=== PATIENT | female | born 1950 | race Caucasian/White ===

== ENCOUNTER 2018-03-06 13:37 | Outpatient (CLI) | payer MEDICARE, OTHER | END 2018-03-06 13:38 | disposition home or self-care (01) | LOC: BICMAMMO 13:37 | PROVIDERS: ATTEND Family Medicine | DX: Z12.31 Encounter for screening mammogram for malignant neoplasm of breast (principal); Z80.3 Family history of malignant neoplasm of breast | CPT/HCPCS: 77063; 77067 ==

== ENCOUNTER 2020-01-16 08:19 | Outpatient (CLI) | payer MEDICARE, OTHER ==
--- NOTE | 2020-01-16 14:04 | NM ---
NUCLEAR MEDICINE BRAIN IMAGING: HISTORY: Extrapyramidal and movement disorder, unspecified TECHNIQUE: A Carla scan with axial tomographic images of the brain was obtained 3 hours following the intravenous administration of 4.6mCi I-123 Ioflupane. The patient was pretreated with 130 mg of oral potassium iodide 1 hour prior to the injection. FINDINGS: There is loss of normal symmetric comma shaped shaped uptake in the striata bilaterally. IMPRESSION: Parkinsonian syndrome. (Parkinsonian syndromes include Parkinson's disease, multiple system atrophy, progressive supranuclea r palsy, dementia with Lewy bodies and cortical basal degeneration).
== END 2020-01-16 08:20 | disposition home or self-care (01) ==
LOC: NM 08:19
PROVIDERS: ATTEND Psychiatry & Neurology Neurology
DX: G25.9 Extrapyramidal and movement disorder, unspecified (principal); G31.83 Neurocognitive disorder with Lewy bodies; F02.80 Dementia in other diseases classified elsewhere, unspecified severity, without behavioral disturbance, psychotic disturbance, mood disturbance, and anxiety; G83.89 Other specified paralytic syndromes; G23.8 Other specified degenerative diseases of basal ganglia; G31.9 Degenerative disease of nervous system, unspecified
CPT/HCPCS: 78803; A9584

== ENCOUNTER 2021-04-06 12:11 | Outpatient (CLI) | payer MEDICARE, OTHER | END 2021-04-06 12:12 | disposition home or self-care (01) | LOC: BICMAMMO 12:11 | PROVIDERS: ATTEND Family Medicine | DX: Z12.31 Encounter for screening mammogram for malignant neoplasm of breast (principal); Z80.3 Family history of malignant neoplasm of breast; Z85.828 Personal history of other malignant neoplasm of skin | CPT/HCPCS: 77063; 77067 ==

== ENCOUNTER 2021-07-10 13:01 | Outpatient (CLI) | payer MEDICARE, OTHER ==
[2021-07-10 23:49] LABS: SARS-CoV-2 PCR by NAA Not Detected (NotDetected)
== END 2021-07-10 13:02 | disposition home or self-care (01) ==
LOC: LABBT 13:01
PROVIDERS: ATTEND Family Medicine
DX: Z01.812 Encounter for preprocedural laboratory examination (principal); Z20.822 Contact with and (suspected) exposure to COVID-19
CPT/HCPCS: U0003; U0005

== ENCOUNTER 2021-07-13 10:58 | Outpatient (CLI) | payer MEDICARE, OTHER | END 2021-07-13 10:59 | disposition home or self-care (01) | PROVIDERS: ATTEND Family Medicine | DX: R13.10 Dysphagia, unspecified (principal); G20 Parkinson's disease | CPT/HCPCS: 74230 ==